=== PATIENT | female | born 1955 | race African-American/Black ===

== ENCOUNTER 2021-05-26 09:14 | Outpatient (CLI) | payer OTHER, SELFPAY ==
--- NOTE | 2021-05-27 10:19 | WPDPFTINT ---
PFT Procedure Performed PFT Procedure Performed Plethysmography (Lung Vol) Diffusing Cap (DLCO) Flow Vol Loop Spirometry w/o Bronchodil PFT Interpretation This is a pulmonary function test with spirometry, plethysmography and diffusing capacity. The test was performed and results interpreted in accordance with the 2019 and 2005 ATS/ERS Task Force guidelines respectively using the Global Lung Function Initiative-2012 reference equations. Patient demonstrated good effort and cooperation. Reproducibility criteria were met. The quality of the spirometry maneuver was Grade A. Findings: Spirometry: There is decreased maximal expiratory airflow at all lung volumes with concave expiratory flow tracing. The contour of the inspiratory flow tracing is normal. The FVC is 1.64 L, 63% predicted. The FEV1 is 1.20 L, 58% predicted. The FEV1: FVC ratio 73%. Plethysmography: The total lung capacity is 5.70 L, 128% predicted. The functional residual capacity is 4.30 L, 155% predicted. The residual volume is 3.86 L, 200% predicted. Diffusing capacity: The absolute diffusion capacity is 8.3, 39% predicted. The diffusing capacity corrected for alveolar volume is 2.59, 59% predicted. Impression: There is a moderately severe obstructive abnormality. The increase in residual volume is consistent with air trapping from an obstructive abnormality. Hyperinflation is present is demonstrated by the increase in functional residual capacity and total lung capacity and is consistent with an obstructive abnormality. The absolute diffusing capacity is severely decreased and remains moderately decreased when corrected for alveolar volume. There are no prior studies for comparison
== END 2021-05-26 09:15 | disposition home or self-care (01) ==
PROVIDERS: PCP Internal Medicine Infectious Disease
DX: R06.02 Shortness of breath (principal); R06.09 Other forms of dyspnea
CPT/HCPCS: 94375; 94726; 94729

== ENCOUNTER 2022-01-23 08:02 | Outpatient (CLI) | payer MEDICARE, MEDICAID, SELFPAY ==
--- NOTE | ~2022-01-23 | PE_ITS ---
EXAMINATION: PET skull to mid thigh DATE: 01/23/2022 09:50 INDICATION: Mass of right lower lobe of lung. TECHNIQUE: Blood glucose level was 117 mg/dL. 9.310 mCi of 18-fluorodeoxyglucose (18-FDG) was adminis tered i.v. Low dose computed tomography (CT) images were acquired from the base of the brain to the p roximal thighs for attenuation correction and anatomic localization. Automated exposure control was e mployed. Dose-length product (DLP) was 1043 mGy-cm. Positron emission tomography (PET) images were ac quired in the same distribution. COMPARISON: Chest CT 08/19/2013 FINDINGS: Head/neck: There is increased activity in the oral cavity, pharynx, major salivary glands, and glotti s without abnormal CT correlate, likely physiologic. There is diffusely increased activity in the thy roid, likely benign. There are no pathologically enlarged lymph nodes. Chest: There is mild emphysema. There is a 2.9 cm nodule in right lung upper lobe with maximum SUV of 27.7. Calcified right hilar lymph nodes are consistent with old granulomatous disease. There is a 2. 5 x 1.1 cm right paratracheal lymph node with maximum SUV of 3.0. No pleural effusion. The heart size is normal. There are coronary artery calcifications. No pericardial effusion. Abdomen/pelvis/proximal thighs: The liver demonstrates hypertrophy of left lateral segment and surfac e nodularity, consistent with cirrhosis. The gallbladder, spleen, pancreas, adrenal glands, and left kidney are normal. There is a 3.0 cm cyst in right kidney. There are no dilated loops of bowel. The a ppendix is normal. There are no pathologically enlarged lymph nodes. There is no free intraperitoneal fluid. There is widespread increased activity in the bone marrow without abnormal CT correlate, like ly bone marrow stimulation. IMPRESSION: 1. 2.9 cm nodule in right lung upper lobe with maximum SUV of 27.7, consistent with primary bronchoge melonie carcinoma. 2. Mildly enlarged right paratracheal lymph node with maximum SUV of 3.0 suspicious for metastatic di sease. 3. Cirrhosis of the liver. Reviewed, dictated and finalized at location B. IMPRESSION: 1. 2.9 cm nodule in right lung upper lobe with maximum SUV of 27.7, consistent with primary bronchogenic carcinoma. 2. Mildly enlarged right paratracheal lymph node with maximum SUV of 3.0 suspic ious for metastatic disease. 3. Cirrhosis of the liver.
[2022-01-23 08:22] LABS: Glucose Point of Care 117 mg/dl (65-105)
== END 2022-01-23 08:03 | disposition home or self-care (01) ==
PROVIDERS: PCP Internal Medicine Infectious Disease; Visit Provider Internal Medicine Pulmonary Disease
DX: R91.1 Solitary pulmonary nodule (principal); R59.0 Localized enlarged lymph nodes; K74.60 Unspecified cirrhosis of liver
CPT/HCPCS: 78815; A9552

== ENCOUNTER 2022-02-09 04:41 | Outpatient (CLI) | payer MEDICARE, MEDICAID, SELFPAY ==
[2022-02-05 09:30] VITALS: BMI 32.4
--- NOTE | 2022-02-05 09:31 | PC.NURSE ---
Report to the Outpatient Waiting Room, entrance under the green pavilion located off [facility], at time _9:00AM on date ___02/09/22____. OR Time: ___11:00AM . - You and your visitor will be asked a series of questions to screen for COVID 19 for your protection. - Only one visitor is allowed at this time. - The patient visitor is requested to leave or wait in car when not with patient. - A mask is required within the hospital. Patients MUST HAVE NOTHING TO EAT OR DRINK FOR 6 HOURS PRIOR TO PROCEDURE-5:00AM ON 02/09/22. Take the following medications with a SIP of water the morning of surgery: ___ALL MORNING MEDICATION Medications to discontinue per physician ____NONE Please no make-up, nail french, hairspray, perfume, deodorant, or body powder the day of surgery. No jewelry (including any body piercings) or valuables the day of surgery, leave them at home. Please take a shower or bath the night before, or the morning of, surgery with an antibacterial soap. Wear comfortable, loose fitting clothing. Children are encouraged to wear pajamas. - Jewelry must be removed prior to entering the operating room. Rings and piercings that are not removed may be cut off. - The hospital will not accept responsibility for valuables. - Please leave all valuables, including medications, at home the day of surgery. If you are going home after surgery, a licensed fuel truck driver must drive you home. - NO public transportation without another adult. - We recommend that an adult stay with you for 24 hours following discharge. - We also recommend that you do not drive, make important decision, drink alcoholic beverages, or take any drugs that were not prescribed by your health care provider for at least 24 hours after your discharge time. Follow any additional instructions given to you from your surgeon. If you or anyone in your household have experienced Covid symptoms in the past week, please notify your surgeon or the nurse liaison at the phone number below for possible testing. Telephone instructions given to _[employer] & PT'S DAUGHTER-JAYA and asked if any additional questions and then verbalized understanding. Patient advised to call surgeon office or pre surgery nurse liaison [phone] if any additional questions.
[2022-02-09 09:48] LABS: Mean Platelet Volume 9.5 fl (7.4-10.4); Platelet Count Result 273 k/mm3 (150-375)
[2022-02-09 09:50] VITALS: BP 133/72; PULSE 81; RESP 20; TEMP 36.6; O2SAT 88
[2022-02-09 10:00] LABS: INR 1.1
[2022-02-09 10:10] VITALS: O2SAT 93
--- NOTE | 2022-02-09 13:09 | SUR.PREOP ---
1120-SUMMONED TO PT'S ROOM, PT STATES SHE IS TIRED OF WAITING, I NEED TO GO HOME NOW, I HAVEN'T HAD MY MEDICATION TODAY AND I'M HUNGRY AND I NEED TO LEAVE EXPLAINED TO PT SHE WAS DELAYED R/T EMERGENCY AND SHE WILL BE NEXT FOR THE RADIOLOGIST. PT STATES I'M NOT WAITING, I'M GOING HOME . CAREGIVER FROM [facility] WITH PT AND ATTEMPTING TO REASON WITH PT. TO NO AVAIL AND STATES SHE IS CALLING PT'S DAUGHTER. PT STATES SHE DOES NOT WANT HER DAUGHTER CALLED AND SHE IS LEAVING, GIVE ME THE PAPER . PT WILL NOT PUT OXYGEN BACK ON AND IS SOMEWHAT DYSPNIC. INFORMED PT SHE CAN CONTINUE TO WAIT FOR PROCEDURE OR CAN CHOOSE TO LEAVE WITH NO ASSURANCE OF WHEN SHE WILL BE RESCHEDULED. PT STATES SHE IS LEAVING AND NOT COMING BACK REQUESTED PT TO REMAIN IN ROOM UNTIL I CAN SPEAK WITH RADIOLOGIST, ASST. DIRECTOR, AND OBTAIN AMA FORM. PT AGREES TO REQUEST. 1130-PT HAS CHANGED INTO OWN CLOTHES AND IS READY TO LEAVE. AMA FORM READ TO PT AND VERBALIZES COMPREHENSION. CAREGIVER IS CURRENTLY SPEAKING WITH PT'S DAUGHTER. 1135-DR. AARON IN TO SPEAK WITH PT. PT STATES SHE IS LEAVING AND NOT HAVING PROCEDURE AND FOR HIM NOT TO CALL HER DAUGHTER NOR HER DOCTOR. 1140-AMA FORMED SIGNED. 1142-MOIRA VALADEZ. 1144-PT DISCHARGED AMBULATORY W/CAREGIVER.
== END 2022-02-09 04:42 | disposition home or self-care (01) ==
PROVIDERS: PCP Internal Medicine Infectious Disease; Referring Provider Internal Medicine Pulmonary Disease; Visit Provider Radiology Diagnostic Radiology
PROC: BB24ZZZ Computerized Tomography (CT Scan) of Bilateral Lungs (ICD-10-PCS; CPT 32408; principal; 2022-02-09 11:00)
DX: R91.1 Solitary pulmonary nodule (principal); Z51.81 Encounter for therapeutic drug level monitoring; Z79.899 Other long term (current) drug therapy
CPT/HCPCS: 36415; 85049; 85610